=== PATIENT | female | born 1970 ===

== ENCOUNTER → 2018-07-11 22:12 | Outpatient (ROUT) | payer OTHER, SELFPAY ==
[2018-07-11 22:46] LABS: Add Manual Diff / Slide Review NO; Alanine Aminotransferase 17 IU/L (9-52); Albumin 4.4 g/dL (3.5-5.0); Albumin Globulin Ratio 1.5 (1.0-2.8); Alkaline Phosphatase 57 U/L (38-126); Aspartate Aminotransferase 20 IU/L (14-36); BUN Creatinine Ratio 15.7 (6-22); Basophils Absolute Auto 0 /uL (0-100); Basophils Percent Auto 1.2 % (0-2); Bilirubin Total 0.6 mg/dL (0.2-1.3); Blood Urea Nitrogen 11 mg/dL (7-17); Calcium 9.9 mg/dL (8.4-10.2); Carbon Dioxide 33 mmol/L (22-32); Chloride 100 mmol/L (98-107); Cholesterol 195 mg/dL (140-199); Eosinophils Absolute Auto 100 /uL (0-450); Estimated Glomerular Filt Rate > 60.0 mL/min (>60); Globulin 2.9 g/dL (1.7-4.1); Glucose 86 mg/dL (70-100); HDL Cholesterol 70 mg/dL (40-60); HEMOLYSIS < 15 (0-50); Hematocrit 39.9 % (36-46); Hemoglobin 13.6 g/dL (12.0-16.0); LDL Cholesterol Calculated 117 mg/dL (<100); Lymphocytes Absolute Auto 1000 /uL (1100-4500); Lymphocytes Percent Auto 26.5 % (25-40); Mean Corpuscular Hemoglobin 29.4 PG (26-34); Mean Corpuscular Volume 86.5 fL (80-100); Monocytes Absolute Auto 200 /uL (0-900); Monocytes Percent Auto 5.5 % (3-14); Neutrophils Absolute Auto 2400 /uL (1500-7000); Neutrophils Percent Auto 64.8 % (50-75); Platelet Count 287 X10^3/uL (150-400); Potassium 3.6 mmol/L (3.4-5.1); Red Blood Cell Count 4.62 X10^6/uL (4.0-5.2); Sodium 139 mmol/L (137-145); Total Protein 7.3 g/dL (6.3-8.2); Triglycerides 40 mg/dL (35-150); White Blood Cell Count 3.7 X10^3/uL (4.5-11.0)
[2018-07-11 23:18] LABS: Thyroid Stimulating Hormone 0.17 uIU/mL (0.47-4.68)
== END ==
PROVIDERS: Visit Provider Family Medicine
DX: Z00.00 Encounter for general adult medical examination without abnormal findings (principal)
CPT/HCPCS: 36415; 80053; 80061; 84443; 85025